=== PATIENT | female | born 1960 | race Caucasian/White ===

== ENCOUNTER → 2017-02-11 | Outpatient (CLI) | payer BC, OTHER ==
[~2017-02-11] MED LIST: ASPCH81X PO; ATOR-26 PO; CLC100 PO; EZET10TA63 PO; FERR1TAB13 PO; GLCPUNK PO; HYOS0.1271 PO; INSUINJ4 SQ; ISOS120T5 PO; LPR25 PO; MISC1CAP PO; PANT40TA PO; ZNTT/150 PO
[2017-02-11 12:08] LABS: BASO % 0.2 %; BASO ABS # 0.01 K/uL (0-0.2); COMPLETE YES; HEMATOCRIT 39.4 % (37-47); IG% 0.2 %; MEAN CELL VOLUME 93.1 fL (80-100); MEAN CORPUSCULAR HEMOGLOBIN 31.7 pg (25-34); MEAN PLATELET VOLUME 10.1 fL (7.4-10.4); MONO % 11.3 %; NEUT % 60.3 %; PLATELET COUNT 238 K/uL (130-400); RED BLOOD COUNT 4.23 M/uL (4.2-5.4); WHITE BLOOD COUNT 6.55 K/uL (4.8-10.8)
[2017-02-11 12:15] LABS: ALT/SGPT 36 U/L (12-78); AMYLASE 44 U/L (25-115); BLOOD UREA NITROGEN 16 mg/dl (7-18); BUN/CREATININE RATIO 17.3 (10-20); CALCIUM 8.5 mg/dl (8.5-10.1); CARBON DIOXIDE 25 mmol/L (21-32); CHLORIDE 104 mmol/L (98-107); CREATININE 0.94 mg/dl (0.60-1.20); GLUCOSE 124 mg/dl (70-99); POTASSIUM 4.1 mmol/L (3.5-5.1); SODIUM 135 mmol/L (136-145)
[2017-02-11 12:18] LABS: ALB/GLOB RATIO 1.2 (0.9-2); ALKALINE PHOSPHATASE 56 U/L (45-117); AST/SGOT 18 U/L (15-37)
[2017-02-11 12:51] LABS: ESTIMATED AVERAGE GLUCOSE 123 mg/dl; HA1C FLAG Normal (Normal)
== END | disposition home or self-care (01) ==
LOC: C.LABBFT 10:55
PROVIDERS: ATTEND Physician Assistant Medical
DX: E11.65 Type 2 diabetes mellitus with hyperglycemia (principal); R10.9 Unspecified abdominal pain

== ENCOUNTER → 2017-02-12 | Outpatient (CLI) | payer BC, OTHER ==
[~2017-02-12] MED LIST changes: +OPTIRAY 320 IV PRN
--- NOTE | 2017-02-12 08:17 | DIAGNOSTIC IMAGING REPORT ---
CT OF THE ABDOMEN AND PELVIS WITH CONTRAST CLINICAL HISTORY: Abdominal pain, diarrhea and low back pain. COMPARISON STUDY: CT of the abdomen and pelvis May 16, 2015. TECHNIQUE: Following IV administration of 93 mL of Optiray-320, axial images of the abdomen and pelvis were obtained from the lung bases to the proximal femurs. Images were reviewed in the axial, sagittal, and coronal planes. IV contrast was administered without complication. A dose lowering technique was utilized adhering to the principles of ALARA. Oral contrast was administered. CT DOSE: 717.85 mGy.cm FINDINGS: Lung bases are clear. There is a small hiatal hernia. The liver, spleen, adrenal glands and pancreas are unremarkable. There are a few subcentimeter renal lesions which are too small to characterize but are likely benign. There is no biliary ductal dilatation status post cholecystectomy. There is no peripancreatic infiltration. No abdominal or pelvic lymphadenopathy is present. Postsurgical findings involving the anterior abdominal wall are noted. Caliber and wall thickness of small and large bowel are normal. The appendix is normal. There is sigmoid diverticulosis without evidence for acute diverticulitis. No free air, pneumatosis or portal venous gas is present. There are no suspicious skeletal lesions. The uterus is nonvisualized and likely surgically absent. There is moderate atherosclerotic plaque of the abdominal aorta. IMPRESSION: 1. No acute process within the abdomen or pelvis. 2. Small hiatal hernia. 3. Sigmoid diverticulosis without evidence for acute diverticulitis. No bowel obstruction. Normal appendix. Electronically signed by: Robe Reina M.D. 02/12/2017 8:15 AM Dictated Date/Time: 02/12/2017 7:56 AM
== END | disposition home or self-care (01) ==
LOC: C.CTS 07:15
PROVIDERS: ATTEND Physician Assistant Medical
DX: R19.7 Diarrhea, unspecified (principal); R10.9 Unspecified abdominal pain; K44.9 Diaphragmatic hernia without obstruction or gangrene; K57.30 Diverticulosis of large intestine without perforation or abscess without bleeding

== ENCOUNTER → 2017-02-16 | Outpatient (CLI) | payer BC, OTHER ==
[~2017-02-16] MED LIST changes: -OPTIRAY 320 IV PRN
[2017-02-16 12:29] LABS: URINE APPEARANCE CLEAR (CLEAR); URINE BILIRUBIN NEG (NEG); URINE COLOR YELLOW; URINE EPITHELIAL CELL AUTO >30 /lpf (0-5); URINE NITRITE NEG (NEG); URINE PH 6.5 (4.5-7.5); URINE SPECIFIC GRAVITY 1.017 (1.000-1.030); UROBILINOGEN NEG (NEG)
[2017-02-16 12:35] LABS: MANUAL MICROSCOPIC REQUIRED? NO; REVIEW REQ? NO
== END | disposition home or self-care (01) ==
LOC: C.LABBFT 08:25
PROVIDERS: ATTEND Internal Medicine
DX: R10.9 Unspecified abdominal pain (principal)

== ENCOUNTER → 2017-03-29 | Outpatient (CLI) | payer BC, OTHER ==
[2017-03-29 17:49] LABS: URINE APPEARANCE CLEAR (CLEAR); URINE BILIRUBIN NEG (NEG); URINE COLOR YELLOW; URINE EPITHELIAL CELL AUTO >30 /lpf (0-5); URINE NITRITE NEG (NEG); URINE SPECIFIC GRAVITY 1.015 (1.000-1.030); UROBILINOGEN NEG (NEG)
[2017-03-29 17:57] LABS: MANUAL MICROSCOPIC REQUIRED? NO; REVIEW REQ? NO
== END | disposition home or self-care (01) ==
LOC: C.LABBFT 13:51
PROVIDERS: ATTEND Physician Assistant Medical
DX: R39.9 Unspecified symptoms and signs involving the genitourinary system (principal)

== ENCOUNTER → 2017-06-08 | Outpatient (CLI) | payer BC, OTHER ==
[2017-06-08 12:41] LABS: ALT/SGPT 18 U/L (12-78); AST/SGOT 8 U/L (15-37); BLOOD UREA NITROGEN 17 mg/dl (7-18); BUN/CREATININE RATIO 19.7 (10-20); CALCIUM 8.3 mg/dl (8.5-10.1); CARBON DIOXIDE 26 mmol/L (21-32); CHLORIDE 107 mmol/L (98-107); CREATININE 0.84 mg/dl (0.60-1.20); GLUCOSE 142 mg/dl (70-99); POTASSIUM 3.9 mmol/L (3.5-5.1); SODIUM 139 mmol/L (136-145)
[2017-06-08 12:48] LABS: ESTIMATED AVERAGE GLUCOSE 126 mg/dl; HA1C FLAG Normal (Normal)
[2017-06-08 12:52] LABS: ALB/GLOB RATIO 1.1 (0.9-2); ALKALINE PHOSPHATASE 54 U/L (45-117); CHOLESTEROL 315 mg/dl (0-200); HDL CHOLESTEROL 35 mg/dl; LDL CHOLESTEROL CALCULATED 221 mg/dl; TRIGLYCERIDES 296 mg/dl (0-150); VERY LOW DENSITY LIPOPROT CALC 59 mg/dl
== END | disposition home or self-care (01) ==
LOC: C.LABBFT 09:16
PROVIDERS: ATTEND Nurse Practitioner Family
DX: E11.9 Type 2 diabetes mellitus without complications (principal)

== ENCOUNTER → 2017-12-30 | Outpatient (CLI) | payer BC, OTHER ==
[~2017-12-30] MED LIST changes: +RANI150T85 PO; -ZNTT/150 PO
[2017-12-30 13:33] LABS: ALBUMIN 3.5 gm/dl (3.4-5.0); TOTAL PROTEIN 6.3 gm/dl (6.4-8.2)
== END | disposition home or self-care (01) ==
LOC: C.LABBFT 08:29
PROVIDERS: ATTEND Internal Medicine Interventional Cardiology
DX: E78.5 Hyperlipidemia, unspecified (principal)

== ENCOUNTER 2019-11-17 06:58 | Inpatient (IN) ==
--- NOTE | 2019-08-25 14:19 | PAT Medication Instructions ---
Medication Instructions Date of Service August 25, 2019 Home Medications Medication Instructions Recorded cyanocobalamin (vitamin B-12) 1,000 mcg PO DAILY #30 tab 03/20/19 1,000 mcg tablet isosorbide mononitrate 120 mg 240 mg PO DAILY #180 tab 06/08/19 tablet,extended release 24 hr metformin 1,000 mg tablet 1,000 mg PO BID #180 tab 07/10/19 pantoprazole 40 mg tablet,delayed 40 mg PO QAM #90 tab 08/25/19 release aspirin 81 mg tablet,delayed release 81 mg PO QAM atorvastatin 80 mg tablet 80 mg PO HS cholecalciferol (vitamin D3) 50 mcg (2,000 unit) tablet 2,000 units PO QAM docusate sodium 100 mg capsule 200 mg PO HS PRN metoprolol tartrate 25 mg tablet 25 mg PO BID nitroglycerin 400 mcg/spray translingual 1 sprays SL .COMPLEX semaglutide 0.5 mg SQ WEEKLY cyanocobalamin (vitamin B-12) 1,000 mcg tablet 1,000 mcg PO DAILY isosorbide mononitrate 120 mg tablet,extended release 24 hr 240 mg PO DAILY metformin 1,000 mg tablet 1,000 mg PO BID famotidine 20 mg PO QPM ferrous sulfate [iron] 325 mg PO QAM magnesium oxide 400 mg PO QAM pantoprazole 40 mg tablet,delayed release 40 mg PO QAM Continue as directed nitroglycerin 400 mcg/spray translingual 1 sprays SL .COMPLEX semaglutide 0.5 mg SQ WEEKLY DO NOT take the morning of surgery cholecalciferol (vitamin D3) 50 mcg (2,000 unit) tablet 2,000 units PO QAM cyanocobalamin (vitamin B-12) 1,000 mcg tablet 1,000 mcg PO DAILY metformin 1,000 mg tablet 1,000 mg PO BID ferrous sulfate [iron] 325 mg PO QAM magnesium oxide 400 mg PO QAM Take morning of surgery With a small sip of water, OTHERWISE NOTHING TO EAT OR DRINK AFTER MIDNIGHT: aspirin 81 mg tablet,delayed release 81 mg PO QAM metoprolol tartrate 25 mg tablet 25 mg PO BID isosorbide mononitrate 120 mg tablet,extended release 24 hr 240 mg PO DAILY pantoprazole 40 mg tablet,delayed release 40 mg PO QAM Take evening before surgery atorvastatin 80 mg tablet 80 mg PO HS docusate sodium 100 mg capsule 200 mg PO HS PRN (if needed) metoprolol tartrate 25 mg tablet 25 mg PO BID metformin 1,000 mg tablet 1,000 mg PO BID famotidine 20 mg PO QPM Other Notes If you have any questions please call us at [phone] or [phone] or [phone] or [phone]
--- NOTE | 2019-11-07 13:10 | PAT Medication Instructions ---
Medication Instructions Date of Service November 07, 2019 Home Medications Medication Instructions Recorded cyanocobalamin (vitamin B-12) 1,000 mcg PO DAILY #30 tab 03/20/19 1,000 mcg tablet isosorbide mononitrate 120 mg 240 mg PO DAILY #180 tab 06/08/19 tablet,extended release 24 hr metformin 1,000 mg tablet 1,000 mg PO BID #180 tab 07/10/19 metoprolol tartrate 25 mg tablet 25 mg PO BID #180 tab 08/25/19 pantoprazole 40 mg tablet,delayed 40 mg PO QAM #90 tab 08/25/19 release atorvastatin 80 mg tablet See Rx Instructions .ROUTE 10/10/19 .COMPLEX #90 tablet ranolazine 500 mg tablet,extended 500 mg PO BID #180 tab 10/16/19 release,12 hr aspirin 81 mg tablet,delayed release 81 mg PO QAM atorvastatin 80 mg tablet 80 mg PO HS cholecalciferol (vitamin D3) 50 mcg (2,000 unit) tablet 2,000 units PO QAM docusate sodium 100 mg capsule 200 mg PO HS PRN metoprolol tartrate 25 mg tablet 25 mg PO BID nitroglycerin 400 mcg/spray translingual 1 sprays SL .COMPLEX semaglutide 0.5 mg SQ WEEKLY cyanocobalamin (vitamin B-12) 1,000 mcg tablet 1,000 mcg PO DAILY isosorbide mononitrate 120 mg tablet,extended release 24 hr 240 mg PO DAILY metformin 1,000 mg tablet 1,000 mg PO BID famotidine 20 mg PO QPM ferrous sulfate [iron] 325 mg PO QAM magnesium oxide 400 mg PO QAM pantoprazole 40 mg tablet,delayed release 40 mg PO QAM ranolazine 500mg tablet, extended release 500 mg PO BID Continue as directed nitroglycerin 400 mcg/spray translingual 1 sprays SL .COMPLEX semaglutide 0.5 mg SQ WEEKLY DO NOT take the morning of surgery cholecalciferol (vitamin D3) 50 mcg (2,000 unit) tablet 2,000 units PO QAM cyanocobalamin (vitamin B-12) 1,000 mcg tablet 1,000 mcg PO DAILY metformin 1,000 mg tablet 1,000 mg PO BID ferrous sulfate [iron] 325 mg PO QAM magnesium oxide 400 mg PO QAM Take morning of surgery With a small sip of water, OTHERWISE NOTHING TO EAT OR DRINK AFTER MIDNIGHT: aspirin 81 mg tablet,delayed release 81 mg PO QAM metoprolol tartrate 25 mg tablet 25 mg PO BID isosorbide mononitrate 120 mg tablet,extended release 24 hr 240 mg PO DAILY pantoprazole 40 mg tablet,delayed release 40 mg PO QAM ranolazine 500mg tablet, extended release 500 mg PO BID Take evening before surgery atorvastatin 80 mg tablet 80 mg PO HS docusate sodium 100 mg capsule 200 mg PO HS PRN (if needed) metoprolol tartrate 25 mg tablet 25 mg PO BID metformin 1,000 mg tablet 1,000 mg PO BID famotidine 20 mg PO QPM ranolazine 500mg tablet, extended release 500 mg PO BID Other Notes If you have any questions please call us at [phone] or [phone] or [phone] or [phone]
--- NOTE | 2019-11-08 09:48 | Anesthesiology Consultation ---
Date of Service November 08, 2019 Assessment & Plan (1) Encounter for pre-operative examination: COVID Status: As of 11/06 nurse assessment, patient denies travel to endemic area, known exposure/sick contacts, symptoms, or testing for coronavirus. Cardiology 04/18/19 office visit = "Endorses CCS class II symptoms which do not appear to be terribly limiting at this time. Blood pressures are borderline for now we will continue on current antianginal therapy with metoprolol and Imdur." Pt was to f/u in 6 months but 10/2019 appt was cx due to covid19 pandemic. Patient reports no change in stable angina (mild chest tightness if she rushes up stairs, +PEREZ with stairs, no symptoms with ambulation on flat surface). BSG AM DOS NOTE TO DR CHEEMA RE: HYPOTENSION, AWAIT RESPONSE. Chart Review Chart Review: Acceptable Risk for Surgery (pending response from Dr. Cheema) and Patient NOT seen in Pre Admission Testing Teaching & Discussion Instructed NPO after midnight before surgery, except medications with 15 cc of water. Medication instructions provided according to the PAT guidelines. History Surgery Operation Date: 11/17/19 10:40 Proposed Procedures p Left Total Knee Arthroplasty - Art Elkins, Height/Weight Height: 5 ft 1 in Weight: 76.204 kg Allergies Allergy/AdvReac Type Severity Reaction Status Date / Time glimepiride Allergy Intermediate RASH Verified 11/07/19 14:25 pneumococcal vaccine Allergy Intermediate RASH Verified 11/07/19 14:25 morphine AdvReac Mild NAUSEA Verified 11/07/19 14:25 Medications Home Medications Medication Instructions Recorded Confirmed Last Taken aspirin 81 mg tablet,delayed 81 mg PO QAM tab 03/16/19 11/08/19 Unknown release cholecalciferol (vitamin D3) 50 2,000 units PO QAM tab 03/16/19 11/08/19 Unknown mcg (2,000 unit) tablet docusate sodium 100 mg capsule 200 mg PO HS PRN cap 03/16/19 11/08/19 Unknown nitroglycerin 400 mcg/spray 1 sprays SL .COMPLEX gm 03/16/19 11/08/19 Unknown translingual semaglutide 0.5 mg SQ WEEKLY ml 03/16/19 11/08/19 Unknown blood sugar diagnostic #10 ea 03/20/19 07/24/19 Unknown cyanocobalamin (vitamin B-12) 1,000 mcg PO DAILY #30 tab 03/20/19 11/08/19 Unknown 1,000 mcg tablet metformin 1,000 mg tablet 1,000 mg PO BID #180 tab 07/10/19 11/08/19 Unknown famotidine 20 mg PO QPM 08/23/19 11/08/19 Unknown ferrous sulfate [iron] 325 mg PO QAM 08/23/19 11/08/19 Unknown magnesium oxide 400 mg PO QAM 08/23/19 11/08/19 Unknown metoprolol tartrate 25 mg tablet 25 mg PO BID #180 tab 08/25/19 11/08/19 Unknown pantoprazole 40 mg tablet,delayed 40 mg PO QAM #90 tab 08/25/19 11/08/19 Unknown release atorvastatin 80 mg tablet See Rx Instructions .ROUTE 10/10/19 11/08/19 Unknown .COMPLEX #90 tablet ranolazine 500 mg tablet,extended 500 mg PO BID #180 tab 10/16/19 11/08/19 Unknown release,12 hr isosorbide mononitrate 240 mg PO QAM 11/07/19 11/08/19 Unknown Past Medical History Medical History CAD (coronary artery disease) s/p CABG x 2 2010. Follows with [facility] Cheema. Diabetes mellitus, type 2 NIDDM DJD (degenerative joint disease) of knee Gastroparesis GERD (gastroesophageal reflux disease) Hiatal hernia History of anemia WHEN TAKING CHEMO Hx of myocardial infarction ? date - at least 10 years ago Hx of ovarian cancer 2013 - CHEMO Hyperlipidemia Osteoarthritis Exercise / Class Metabolic Activity III < 4 Walking/Shop/Light housework (Denies CP or SOB with ambulation on one level) + "chest tightness" with 1 FOS, stable, has been this way for many years. Past Family History Family History Unknown Colon cancer Coronary heart disease Hypercholesterolemia Uncle Diabetes Cardiac disorder Brother Hearing loss Cardiac disorder Stroke syndrome Asthma Sister Gallbladder disease Mother Gallbladder disease Father Gallbladder disease Past Surgical History Surgical History History of abdominal hysterectomy History of carpal tunnel repair History of tubal ligation History of umbilical hernia repair Hx of bladder repair surgery Hx of CABG - 2010 Hx of cardiac cath 2011 [facility] AND 2016 [facility] Hx of cholecystectomy Hx of colonoscopy Hx of esophagogastroduodenoscopy Hx of foot surgery HEELS - BOTH; BIG TOE - BONE SPUR LEFT Hx of total hysterectomy Past Anesthesia History No Hx of Anesthesia Complications and No Family Hx of Anesthesia Complications History of PONV No Hx of PONV and No Hx of Motion Sickness Social History Smoking Status: Never smoker Do You Dip or Chew Tobacco: No Hx Alcohol Use: Yes Alcohol type: wine alcohol intake frequency: holidays/special occasions only Hx Substance Use: No Review of Systems Pt denies any recent chest pain, shortness of breath, palpitations, cough, fever or URI. Physical Exam Vital Signs BP: 84/53, rpt 81/45 -- pt denies any symptoms of hypotension, states this is normal for her since her CABG. Rpt MANUAL 92/60 P: 73bpm SPO2: 96% RA T: 97.7 R: 18 ENMT Mouth: + dentures and + edentulous Thyromental Distance: < 3.5 Finger Breadths (3) Mallampati Class: I Neck normal visual inspection; neck extension not limited Respiratory normal respiratory effort Auscultation: lungs clear to auscultation bilaterally Cardiovascular Rate/Rhythm: regular rate and regular rhythm Heart Sounds: no murmur Extremities: no edema Testing Laboratory Results 11/08/19 10:10 11/08/19 10:10 PT 11.1 Seconds (9.0-12.0) 11/08/19 10:10 INR 1.1 (0.9-1.1) 11/08/19 10:10 APTT 24.3 Seconds (21.0-31.0) 11/08/19 10:10 Hemoglobin A1c 6.2 % (4.5-5.6) H 11/08/19 10:10 Blood Type A Positive 11/08/19 10:10 Antibody Screen NEGATIVE 11/08/19 10:10 Electrocardiogram Date: 11/08/19 Findings: + NSR @ (70bpm) Low voltage QRS, NSTWA. Compared to EKG from 12/17/10, questionable change in QRS axis, NSTWA no longer present in inferior leads, NSTWA now evident in lateral leads. Chest X-Ray Date: 11/08/19 Findings: + NAD Cardiac Catheterization Date: 03/17/16 Significant CAD by angiography, however unchanged from prior angiography film reviewed from 2011. No new culprit lesion is identified for the patient's symptoms. No targets for additional catheter or surgical revascularization identified at this time.
[2019-11-08 10:25] LABS: Basophils # (auto) 0.01 K/uL (0-0.2); Basophils % (auto) 0.2 %; Eosinophils # (auto) 0.23 K/uL (0-0.5); Eosinophils % (auto) 4.2 %; Immature Granulocytes # (auto) 0.02 K/uL (0.00-0.02); Immature Granulocytes % (auto) 0.4 %; Lymphocytes # (auto) 1.46 K/uL (1.2-3.4); Lymphocytes % (auto) 26.5 %; Mean Corpuscular Hemoglobin 30.4 pg (25-34); Mean Corpuscular Hgb Conc 32.5 g/dL (32-36); Mean Corpuscular Volume 93.5 fL (80-100); Monocytes # (auto) 0.39 K/uL (0.11-0.59); Monocytes % (auto) 7.1 %; Neutrophils # (auto) 3.39 K/uL (1.4-6.5); Neutrophils % (auto) 61.6 %; Platelet Count 197 K/uL (130-400); RDW Coefficient of Variation 13.4 % (11.5-14.5); RDW Standard Deviation 45.5 fL (36.4-46.3); Red Blood Count 4.28 M/uL (4.2-5.4)
[2019-11-08 10:31] LABS: Estimated Average Glucose 131 mg/dl; Hemoglobin A1C 6.2 % (4.5-5.6)
[2019-11-08 10:40] LABS: INR 1.1 (0.9-1.1); Partial Thromboplastin Ratio 0.9; Partial Thromboplastin Time 24.3 Seconds (21.0-31.0); Prothrombin Time 11.1 Seconds (9.0-12.0)
--- NOTE | 2019-11-08 10:54 | XRay Report ---
XR chest Pre-admission PA/Lat HISTORY: Preop. COMPARISON: Chest 05/08/2015. FINDINGS: No pneumothorax. No pleural effusions. The lungs are clear. The heart is normal in size. Th ere are poststernotomy changes. IMPRESSION: No acute process. ACT 112: Negative or not required by law. Electronically signed by: Saul Chatterjee M.D. 11/08/2019 10:53 AM
[2019-11-08 12:59] LABS: BUN Creatinine Ratio 15.2 (10-20); Calcium 8.6 mg/dl (8.5-10.1); Creatinine Clr Calc Pharmacy 52.7 ml/min; Est GFR (African American) 66.1; Potassium 4.3 mmol/L (3.5-5.1)
--- NOTE | 2019-11-08 14:33 | Electrocardiogram Report ---
Test Reason : Blood Pressure : / mmHG Vent. Rate : 070 BPM Atrial Rate : 070 BPM P-R Int : 172 ms QRS Dur : 072 ms QT Int : 402 ms P-R-T Axes : 064 078 080 degrees QTc Int : 434 ms Normal sinus rhythm Low voltage QRS Nonspecific T wave abnormality Abnormal ECG When compared with ECG of 17-DEC-2010 16:59, Questionable change in QRS axis Nonspecific T wave abnormality no longer evident in Inferior leads Nonspecific T wave abnormality now evident in Lateral leads Confirmed by Jose Monet ([id number]) on 11/08/2019 2:33:23 PM Referred By: Art Elkins Confirmed By:Jose Monet
--- NOTE | 2019-11-16 07:48 | History & Physical Report ---
Date of Service November 16, 2019 Assessment & Plan (1) Osteoarthritis of left knee: We will proceed with a left total knee arthroplasty. Postoperatively she will be started on aspirin for DVT prophylaxis and kept overnight in the hospital for postoperative medical management. She plans to go to [facility] physical therapy as an outpatient upon discharge. Halima is an increased risk for knee replacement surgery. She has major comorbidities which include diabetes and coronary artery disease. Present on Admission?: Yes History of Present Illness Chief Complaint: Primary osteoarthritis of the left knee Primary Care Provider: Osman Frank MD Halima is a pleasant 59-year-old female who is been dealing with chronic increasing left knee pain. X-rays and physical examination have been diagnostic for advanced osteoarthritis of the left knee. After failing conservative treatment, she has elected to proceed with a left total knee arthroplasty. Allergies Allergy/AdvReac Type Severity Reaction Status Date / Time glimepiride Allergy Intermediate RASH Verified 11/07/19 14:25 pneumococcal vaccine Allergy Intermediate RASH Verified 11/07/19 14:25 morphine AdvReac Mild NAUSEA Verified 11/07/19 14:25 Home Medications Home Medications Medication Instructions Recorded Confirmed Type aspirin 81 mg tablet,delayed 81 mg PO QAM tab 03/16/19 11/08/19 History release cholecalciferol (vitamin D3) 50 2,000 units PO QAM tab 03/16/19 11/08/19 History mcg (2,000 unit) tablet docusate sodium 100 mg capsule 200 mg PO HS PRN cap 03/16/19 11/08/19 History nitroglycerin 400 mcg/spray 1 sprays SL .COMPLEX gm 03/16/19 11/08/19 History translingual semaglutide 0.5 mg SQ WEEKLY ml 03/16/19 11/08/19 History blood sugar diagnostic #10 ea 03/20/19 07/24/19 History cyanocobalamin (vitamin B-12) 1,000 mcg PO DAILY #30 tab 03/20/19 11/08/19 Rx 1,000 mcg tablet metformin 1,000 mg tablet 1,000 mg PO BID #180 tab 07/10/19 11/08/19 Rx famotidine 20 mg PO QPM 08/23/19 11/08/19 History ferrous sulfate [iron] 325 mg PO QAM 08/23/19 11/08/19 History magnesium oxide 400 mg PO QAM 08/23/19 11/08/19 History metoprolol tartrate 25 mg tablet 25 mg PO BID #180 tab 08/25/19 11/08/19 Rx pantoprazole 40 mg tablet,delayed 40 mg PO QAM #90 tab 08/25/19 11/08/19 Rx release atorvastatin 80 mg tablet See Rx Instructions .ROUTE 10/10/19 11/08/19 Rx .COMPLEX #90 tablet ranolazine 500 mg tablet,extended 500 mg PO BID #180 tab 10/16/19 11/08/19 Rx release,12 hr isosorbide mononitrate 240 mg PO QAM 11/07/19 11/08/19 History Past Med/Surg History Medical History CAD (coronary artery disease) s/p CABG x 2 2010. Follows with [facility]as. Diabetes mellitus, type 2 NIDDM DJD (degenerative joint disease) of knee Gastroparesis GERD (gastroesophageal reflux disease) Hiatal hernia History of anemia WHEN TAKING CHEMO Hx of myocardial infarction ? date - at least 10 years ago Hx of ovarian cancer 2013 - CHEMO Hyperlipidemia Osteoarthritis Surgical History History of abdominal hysterectomy History of carpal tunnel repair History of tubal ligation History of umbilical hernia repair Hx of bladder repair surgery Hx of CABG - 2010 Hx of cardiac cath 2011 [facility] AND 2015 [facility] Hx of cholecystectomy Hx of colonoscopy Hx of esophagogastroduodenoscopy Hx of foot surgery HEELS - BOTH; BIG TOE - BONE SPUR LEFT Hx of total hysterectomy Family History Unknown Colon cancer Coronary heart disease Hypercholesterolemia Uncle Diabetes Cardiac disorder Brother Hearing loss Cardiac disorder Stroke syndrome Asthma Sister Gallbladder disease Mother Gallbladder disease Father Gallbladder disease Social History Preferred Language: Korean Communication Ability: Effective Beliefs That Will Affect Care: None marital status: Current Living Situation: Spouse Feels Safe at Home: Yes Smoking Status: Never smoker Second Hand Exposure: No ; Hx Alcohol Use: Yes Alcohol type: wine Hx Substance Use: No Review of Systems Review of Systems: All systems reviewed & are unremarkable except as noted in HPI & below Physical Exam Constitutional: WD/WN, vitals as above Eyes: PERRL, conjunctivae normal, anicteric sclerae ENMT: external ear and nose normal, oropharynx normal Neck: trachea midline, no thyromegaly Respiratory: normal respiratory effort Cardiovascular: RRR, no murmur, no edema Gastrointestinal (Abdomen): normal bowel sounds, soft, nontender, no hepatosplenomegaly Musculoskeletal: On physical examination of the left knee there is a trace effusion. There is near full range of motion and no evidence of instability. There is significant tenderness palpation along the medial and lateral joint lines and over the distal femoral condyles. Psychiatric: A+Ox3, euthymic affect Results & Data Results & Data ([facility]) Diagnostic Findings Radiographs of the left knee demonstrate advanced osteoarthritis with joint space narrowing osteophyte formation and [id number] articulation. PG Care Time/CCT Total # of Minutes Spent Total Time Spent with Patient: Total time spent is greater than 50% in coordination of care (as documented) at patient's floor/unit and/or counseling patient: Coding Level of Care Code 81060 Initial Inpt Care Lvl 3 Diagnoses Osteoarthritis of left knee M17.12
[~2019-11-17 06:58] MED LIST changes: +ACETAMINOPHEN 500 MG TAB PO SCH; -ASPCH81X PO; -ATOR-26 PO; +CEFAZOLIN 1000MG 1,000 MG/7.5 ML SYR IV SCH; -CLC100 PO; -EZET10TA63 PO; +FAMOTIDINE 20 MG TAB PO SCH; -FERR1TAB13 PO; +GABAPENTIN 600 MG DOSE PO SCH; -GLCPUNK PO; -HYOS0.1271 PO; -INSUINJ4 SQ; -ISOS120T5 PO; -LPR25 PO; +LR 500ML BOLUS, THEN 15ML/HR IV SCH; +LR 60ML/HR IV SCH; -MISC1CAP PO; -PANT40TA PO; -RANI150T85 PO; +ROPIVACAINE 0.5% HCL/PF 150 MG, BUPIVACAINE 0.5% MPF 30 ML, EPINEPHrine 30MG/30ML (OR U... INFIL SCH; +TRANEXAMIC ACID 1,000 MG **IV Intra-op IV SCH; +dexAMETHasone 4 MG TAB PO SCH
[2019-11-17] MEDS ORDERED: BUPIVACAINE 0.25% 30 ML VIAL ONE (07:21)
[2019-11-17] MEDS ORDERED: BUPIVACAINE 0.5 % 5 MG/1 ML PF 10ML VIAL ONE (07:21)
[2019-11-17] MEDS ORDERED: MIDAZOLAM HCL 1 MG/ML 2ML VIAL ONE (07:40)
[2019-11-17] MEDS ORDERED: LIDOCAINE HCL 2% 2 ML VIAL/AMP(20MG/ML) INFIL ONE (07:40)
[2019-11-17] MEDS ORDERED: PROPOFOL IV EMULSION 10 MG/ML 20 ML VIAL IV ONE (07:40)
[2019-11-17] MEDS ORDERED: ATROPINE SULFATE 0.1 MG/ML 10ML SYR IV PRN (08:18)
[2019-11-17] MEDS ORDERED: ePHEDrine sulfate 50 MG/ML AMP IV PRN (08:18)
--- NOTE | 2019-11-17 08:27 | History & Physical Bridge Note ---
Date of Service November 17, 2019 History & Physical Bridge Note I have examined the patient, reviewed the History & Physical and in the interval since the performance of the History & Physical I have noted the following changes of clinical significance: no changes noted
[2019-11-17] MEDS: TRANEXAMIC ACID / 0.7% NACL 1,000 MG/100 ML BAG IV SCH ×2 (08:36→10:45)
[2019-11-17] MEDS ORDERED: DexMEDEtomidine HCL IV 100 MCG/ML VIAL ONE (08:52)
[2019-11-17] MEDS ORDERED: ORTHO JOINT ANESTHETIC ONE (09:12)
[2019-11-17] MEDS ORDERED: ePHEDrine sulfate 50 MG/ML AMP ONE (10:52)
[2019-11-17] MEDS ORDERED: PHENYLEPHRINE HCL 10 MG/ML VIAL ONE (10:52)
--- NOTE | 2019-11-17 11:04 | Operative Report ---
PG Post Operative Report Pre & Post Diagnosis Operation Date: 11/17/19 08:50 Pre-Op Diagnosis: Left Knee Osteoarthritis Post-Op Diagnosis: Left Knee Osteoarthritis I identified the patient and participated in the time-out.: Yes Procedure Operation Date: 11/17/19 08:50 Actual Procedures p Left Total Knee Arthroplasty(Left) - Art Elkins DO Surgeon Art Elkins DO [employer] Coordinator Art Neumann PAC Estimated Blood Loss 30 Findings Consistent with Post-Op Diagnosis Specimens Left femoral and tibial bone Complications none Disposition Disposition: Recovery Room Indications Halima is a pleasant 59-year-old female who presented my office with complaints of chronic increasing left knee pain. X-rays and clinical examination were diagnostic for primary osteoarthritis of the left knee. After failing conservative treatment, she elected to proceed with a left total knee arthroplasty. Description of Procedure Implants used: I used a Nicholas Persona total knee arthroplasty system with a size 6 narrow femur, C tibia, 26 patella, and a size 10 medial congruent polyethylene bearing. All components were cemented in place with Palacos G cement. Halima arrived [facility] for the above procedure. She was seen in the preoperative holding area and the operative extremity was identified and signed. She was given a preoperative antibiotic, TXA, a spinal anesthetic and an adductor nerve block. She was taken back to the operating room and laid on the table in supine position. She was given basic sedation. The operative knee was then prepped and draped in sterile fashion. A timeout was done, and the patient and the operative extremity was properly identified. A midline incision was made directly over the patella. Dissection was taken down to the extensor mechanism. A subvastus arthrotomy was used. The medial retinaculum was released and the fat pad was mostly excised. The knee was flexed and the ACL, PCL, and meniscus were removed. A drill was sent down the center of the femoral canal followed by an intramedullary elaina. Off that elaina a distal femoral cutting block was placed. 9 mm was resected off the distal femur at 5 of valgus. A posterior referencing AP sizing guide was then placed on the distal femur. The femur measured to be a size 6. 2 drill holes were placed in 3 of external rotation. A 4-in-1 cutting block was then impacted into place. Anterior, posterior, and chamfer cuts were then made. The proximal tibia was then exposed. An external tibial alignment guide was placed. A tibial cut guide was then anchored in place to resect 2 mm off the low medial side. The proximal tibia was then resected. The tibia measured to be a size C. The tibial plate was then placed in the appropriate rotation and the tibia was drilled and punched. The posterior aspect of the knee was then opened up and any additional meniscus fragments and osteophytes were removed. Trial components were then placed. I used a size 10 medial congruent polyethylene insert. The knee was brought through a full range of motion and felt to be stable. The patella was then everted and 8 mm was resected off the posterior aspect of the patella. The patella measured to be a size 26. 3 peg holes were then drilled. A trial patella was placed. The knee was once again brought through a full range of motion and felt to be stable. Trial components were then removed. The surrounding soft tissues were injected with 100 cc of an orthopedic pain control cocktail. All components were then cemented into place with Palacos G cement. The final polyethylene insert was then snapped into place and the anterior bar was locked. Once cement was dry the tourniquet was deflated. Hemostasis was obtained. A dilute betadyne lavage was then done for 3 minutes. The joint was then irrigated with normal saline solution. The subvastus arthrotomy was then closed with #1 Vicryl suture. The skin was closed with 2-0 Vicryl, 3-0V lock suture, and young. A soft compressive dressing was placed. She was then transferred to a hospital bed and taken to the postanesthesia care unit in stable condition. She tolerated the procedure well. Art Neumann PA-C, was present for the entire procedure. He was critical for patient positioning, prepping, draping, retraction exposure, wound closure and application of sterile dressing. I attest to the content of the Intraoperative Record and any orders documented therein. Any exceptions are noted below.
--- NOTE | 2019-11-17 11:47 | XRay Report ---
XR knee LT 1 or 2V routine CLINICAL HISTORY: Surgical Post Op COMPARISON: None. DISCUSSION: Anatomic alignment posttotal left knee arthroplasty. Could contact between prosthetic and underlying bone. Expected postoperative soft tissue change IMPRESSION: Anatomic alignment posttotal left knee arthroplasty. ACT 112: Negative or not required by law. The above report was generated using voice recognition software. It may contain grammatical, syntax or spelling errors. Electronically signed by: Kristian Hannon M.D. 11/17/2019 11:45 AM
[2019-11-17] MEDS ORDERED: NALOXONE HCL 0.4 MG/1 ML VIAL/CARP IV PRN (13:04)
[2019-11-17] MEDS ORDERED: HYDROmorphone INJ 0.5 MG/0.5 ML SYR IV PRN (13:04)
[2019-11-17] MEDS ORDERED: DOCUSATE SODIUM 100 MG CAP PO PRN (13:04)
[2019-11-17] MEDS ORDERED: ONDANSETRON INJ 2 MG/ML 2 ML VIAL IV PRN (13:04)
[2019-11-17] MEDS ORDERED: bisacodyL 10 MG SUPP PR PRN (13:04)
[2019-11-17] MEDS ORDERED: MAGNESIUM HYDROXIDE SUSP 30 ML UDC PO PRN (13:04)
[2019-11-17] MEDS ORDERED: NON-FORMULARY MEDICATION (Semaglutide [Ozempic] 0.5 MG) SQ SCH (13:04)
[2019-11-17] MEDS ORDERED: OXYCODONE HCL IR 5 MG TAB (IMMEDIATE RELEASE) PO PRN (13:04)
[2019-11-17] MEDS ORDERED: METOCLOPRAMIDE HCL INJ 5 MG/ML 2 ML VIAL IV PRN (13:04)
[2019-11-17] MEDS ORDERED: NITROGLYCERIN 60 SPRAYS/4.9 GM SPRAY SL PRN (13:04)
--- NOTE | 2019-11-17 13:05 | Anesthesiology Progress Note ---
Date of Service November 17, 2019 Anesthesia Post Procedure Vital Signs Vital Signs: Temp Pulse Pulse Resp BP BP Pulse Ox 11/17/19 12:15 55 L 17 89/54 L 100 11/17/19 12:05 36.3 C L 58 L 18 89/61 L 99 11/17/19 11:50 59 L 19 86/52 L 99 11/17/19 11:40 61 18 79/48 L 99 11/17/19 11:30 66 20 84/51 L 93 11/17/19 11:20 61 20 87/54 L 99 11/17/19 11:10 36.3 C L 63 16 84/52 L 99 11/17/19 07:29 36.5 C 76 20 101/72 96 Transfer of Care Handoff Completed per policy Notes Mental Status: alert / awake / arousable and participated in evaluation Nausea / Vomiting: adequately controlled Pain: adequately controlled Airway Patency, RR, SpO2: stable & adequate BP & HR: stable & adequate Hydration State: stable & adequate Neuraxial Anesthesia: was administered and sensory block is resolving Anesthetic Complications: no major complications apparent and Pt Satisfied with anesthetic care
[2019-11-17] MEDS ORDERED: PHARMACY GLYCEMIC MGMT CONSULT PRN (13:21)
[2019-11-17] MEDS ORDERED: DEXTROSE 50% 50 ML SYRINGE IV PRN (13:45)
[2019-11-17] MEDS ORDERED: GLUCOSE 40% GEL 15 GM TUBE PO PRN (13:45)
[2019-11-17] MEDS ORDERED: GLUCOSE 10 TABS/TUBE PO PRN (13:45)
[2019-11-17] MEDS ORDERED: CARBOHYDRATES FOR HYPOGLYCEMIA PO PRN (13:45)
[2019-11-17] MEDS ORDERED: GLUCAGON FOR INJ 1 MG VIAL IM PRN (13:45)
[2019-11-17] MEDS ORDERED: NovoLIN-N (NPH) PER UNIT CHARGE SQ ONE (14:00)
--- NOTE | 2019-11-17 14:11 | Pharmacy Report ---
Glycemic Control Consultation - Date of Service November 17, 2019 - Scope Scope: Glycemic Pharmacist consulted for glycemic control and to write orders per [facility] inpatient glycemic control protocol. - Objective Weight: 74.4 kg Accuchecks BSG (last 24hrs): 11/17/19 11/17/19 07:23 11:19 POC Glucose 119 H 175 H HbA1c: Hemoglobin A1c 6.2 % (4.5-5.6) H 11/08/19 10:10 - Recent Pertinent Medications Outpatient Anti-diabetic Regimen: * Ozempic 0.5 mg SQ weekly (last dose 11/15/19) * metformin 1000 mg BID * A1c = 6.2 % 11/08/2019 Risk Factors for Insulin Resistance: * Steroids: dexamethasone 8 mg PO preop * Recent Surgery: POD 0 * Diet: T2DM - Assessment & Plan Assessment & Plan: ASSESSMENT: * Ms Dumont is a 59 y/o F with a PMH of T2DM who presents for L TKA. Patient's diabetic control is excellent on Ozempic and metformin. Ozempic last taken 2 days ago so is still onboard. * She received dexamethasone 8 mg preop - give NPH 15 units (0.2 units/kg) to cover. * Utilize Novolog weight-based stress of 3 for steroid induced hyperglycemia. Ov ernight checks added. * ADA & AACE recommend a goal blood sugar range 140-180 mg/dl for the majority of critically ill & non-critically ill patients. However, more stringent targets may be selected in individual cases. Will utilize more stringent goal of 110-140mg/dl based on patient age & comorbidities. Additionally, tighter glycemic control is warranted to facilitate wound/infection healing. * Pt is maintained on oral antidiabetic agents as an outpatient * Oral agents are not recommended for inpatient use d/t drug interactions, changing PO intake, and difficulty titrating for acute hyper/hypoglycemia. ADA recommends re-initiating outpatient oral agents 1-2 days prior to discharge if/when appropriate if they were held on admission. * Will hold oral agents for admission and utilize SQ basal bolus insulin regimen which is the recommended regimen for inpatient glycemic control. PLAN FOR INPATIENT GLYCEMIC CONTROL: * Holding outpatient oral diabetes medications * Basal insulin * NPH 20 units SQ x 1 * Bolus insulin * NovoLog per scale ACHS or Q6hrs while NPO * Goal Range: Low 110 mg/dL - High 140 mg/dL * Correction Factor: 20 mg/dL/unit * Nutritional / Prandial insulin per carb ratio of 1 unit per 7 grams CHO consumed Outpatient Recommendations * Patient's HbA1C well controlled - recommend continuing current outpatient regimen . Thank you.
[2019-11-17] MEDS: SODIUM CHLORIDE 0.9% 1000ML 1,000 ML IV SCH (14:30)
[2019-11-17] MEDS: ACETAMINOPHEN 500 MG TAB PO SCH ×2 (14:32→21:17)
[2019-11-17] MEDS: KETOROLAC 30 MG/ML VIAL IV SCH ×2 (14:32→20:07)
[2019-11-17] MEDS: CEFAZOLIN 2000MG 2,000 MG/15 ML SYR IV SCH (17:31)
[2019-11-17] MEDS: INSULIN ASPART 100 UNITS/ML 3 ML PEN SC SCH ×2 (18:02→21:18)
[2019-11-17] MEDS: DOCUSATE SODIUM 100 MG CAP PO SCH (20:11)
[2019-11-17] MEDS ORDERED: ATORVASTATIN 40 MG TAB PO SCH (21:00)
[2019-11-17] MEDS ORDERED: FAMOTIDINE 20 MG TAB PO SCH (21:00)
[2019-11-17] MEDS ORDERED: SENNA 8.6 MG TAB PO SCH (21:00)
[2019-11-17] MEDS: ASPIRIN 81 MG ECTAB PO SCH (21:17)
[2019-11-17] MEDS: RANOLAZINE 500 MG ER TAB PO SCH (21:17)
[2019-11-17] MEDS: METOPROLOL TARTRATE 25 MG TAB PO SCH (21:17)
[2019-11-18] MEDS: INSULIN ASPART 100 UNITS/ML 3 ML PEN SC SCH ×3 (00:03→08:52)
[2019-11-18] MEDS: SODIUM CHLORIDE 0.9% 1000ML 1,000 ML IV SCH (02:09)
[2019-11-18] MEDS: CEFAZOLIN 2000MG 2,000 MG/15 ML SYR IV SCH (02:29)
[2019-11-18] MEDS: KETOROLAC 30 MG/ML VIAL IV SCH ×2 (02:30→08:16)
[2019-11-18] MEDS: ACETAMINOPHEN 500 MG TAB PO SCH (05:42)
[2019-11-18 06:09] LABS: Hematocrit (blood only) 32.6 % (37-47); Hemoglobin 11.2 g/dL (12.0-16.0); Mean Corpuscular Hemoglobin 31.8 pg (25-34); Mean Corpuscular Hgb Conc 34.4 g/dL (32-36); Mean Corpuscular Volume 92.6 fL (80-100); Mean Platelet Volume 10.1 fL (7.4-10.4); Platelet Count 179 K/uL (130-400); RDW Coefficient of Variation 13.4 % (11.5-14.5); RDW Standard Deviation 45.2 fL (36.4-46.3); Red Blood Count 3.52 M/uL (4.2-5.4); White Blood Count 11.26 K/uL (4.8-10.8)
[2019-11-18 06:42] LABS: Calcium 7.7 mg/dl (8.5-10.1); Creatinine Clr Calc Pharmacy 55.8 ml/min; Est GFR (African American) 71.8; Est GFR (Non-African American) 61.9; Potassium 3.9 mmol/L (3.5-5.1)
--- NOTE | 2019-11-18 06:45 | Orthopedic Progress Note ---
Date of Service November 18, 2019 Assessment & Plan (1) History of left knee replacement: Overall she is doing very well. She is not having much pain in the left knee. She will be seen by physical therapy today for ambulation and range of motion exercises. She is on aspirin for DVT prophylaxis. She can be discharged home later today. She will follow-up with orthopedics in 2 weeks. Present on Admission?: Yes Subjective Halima was seen and examined at bedside this morning. Overall she is doing very well. She is not having much pain in the left knee. She has been up and ambulating to the bathroom. She has no complaints. Physical Exam Musculoskeletal: On physical examination of the left knee, the dressing is clean and dry. She has active dorsiflexion and plantarflexion of her left ankle. Sensation is intact throughout. Results & Data ([facility]) Vital Signs (Past 12 Hours) Vital Signs Temp Pulse Resp BP Pulse Ox 11/18/19 02:37 36.8 C 73 20 130/81 97 11/17/19 23:36 36.6 C 70 16 104/67 96 11/17/19 19:17 36.7 C 80 17 110/73 95 Laboratory Results H & H 11/08/19 11/18/19 Range/Units 10:10 05:38 Hgb 13.0 11.2 L (12.0-16.0) g/dL Hct 40.0 32.6 L (37-47) % Coagulation 11/08/19 Range/Units 10:10 INR 1.1 (0.9-1.1) Diagnostic Findings Postoperative x-rays of the left knee show the prosthesis to be in anatomic alignment without any evidence of fracture, dislocation, or loosening. PG Care Time/CCT Total # of Minutes Spent Total Time Spent with Patient: Total time spent is greater than 50% in coordination of care (as documented) at patient's floor/unit and/or counseling patient: Coding Level of Care Code None Diagnoses History of left knee replacement Z96.652
--- NOTE | 2019-11-18 06:46 | Discharge Summary ---
Date of Service November 18, 2019 Admission HPI Per Admitting Provider Halima is a pleasant 59-year-old female who is been dealing with chronic increasing left knee pain. X-rays and physical examination have been diagnostic for advanced osteoarthritis of the left knee. After failing conservative treatment, she has elected to proceed with a left total knee arthroplasty. Principal Diagnosis Left total knee arthroplasty Discharge Data Allergies Allergy/AdvReac Type Severity Reaction Status Date / Time glimepiride Allergy Intermediate RASH Verified 11/17/19 07:23 pneumococcal vaccine Allergy Intermediate RASH Verified 11/17/19 07:23 morphine AdvReac Mild NAUSEA Verified 11/17/19 07:23 Consultations 11/17/19 13:04 Consult Case Management - Discharge Planning Routine Procedures Performed Operation Date: 11/17/19 08:50 Actual Procedures p Left Total Knee Arthroplasty(Left) - Art Elkins DO Ordered Studies 11/17/19 05:00 US - OR guided needle placemen Routine Hospital Course (1) History of left knee replacement: On November 17, 2019 Halima arrived at [facility] and underwent a left total knee arthroplasty without complication. She had a spinal anesthetic. Postoperatively she was started on aspirin for DVT prophylaxis and transferred to the general orthopedic floors. Her hospital course was uneventful. On postop day #1 her H&H was stable and her pain was well controlled. She was able to participate well with physical therapy doing ambulation and range of motion exercises. She was then discharged home. She will follow-up with orthopedics in 2 weeks. Total Time Total Time Spent Total Time Spent (In Minutes): 20 Discharge Plan Discharge Items Patient Disposition: Home - Home Health Services Reason For Visit: Left Knee Degenerative Joint Disease Discharge Diagnosis: Left total knee arthroplasty Activity: As commented below Non-emergency contact: Surgeon Call non-emergency contact if: your wound has increased redness and your wound has increased drainage Follow-up/Referrals: Mikel Frank MD [Primary Care Provider] - Diet: Carb Consistent or DM2 Addtl Attending Provider Instructions: Activity and Therapy Recommendations: * If you are using [facility] then therapy will be provided at your home until they feel you have accomplished all of your goals. * If you are using [facility] then Physical Therapy will be provided until they feel you are ready to start Outpatient Physical Therapy. * If you are not using home therapy then Outpatient Physical Therapy should start about 3-5 days from your day of surgery. Therapy will last about 6-10 weeks * It is important not to put a pillow under your knee when you are relaxing or sleeping. It is just as important to make sure you are getting your knee perfectly straight as it is to regain your knee bend. * You were shown a series of exercises in the hospital. Do these exercises three times each day including the exercises you were shown in physical therapy. * Get up and walk several times each day. For the first four weeks, try not to stand or walk for more than one hour at a time. If you do stand or walk for more than one hour, you will not hurt anything, but your leg will likely swell. * As you feel comfortable, you may change from the walker or crutches to a cane and then to independent walking. Medications: * Narcotic You will likely be sent home from the hospital with a prescription for the narcotic pain medication that worked best throughout your stay. * Aspirin Most patients will be required to take Aspirin 81mg twice a day for 6 weeks after surgery. This is obtained [id number] and a prescription is not necessary. * Other medications may be prescribed for specific circumstances. If you have any questions, please call the office at . * Resume previous home medications unless otherwise instructed TEDs/Elastic Stockings: The white elastic stockings help limit swelling and prevent blood clots from forming in your legs.~ The more you wear them, the more they work. Wear them for six weeks. Dressing Care: Leave the silver dressing in place for 7 days from the day of surgery. After 7 days you may remove the dressing. If the incision is not draining then you may leave the young open to air. If there is a little bit of drainage or if the young are getting stuck on your clothing then cover the incision with a dry dressing. The young will be removed at your 2 week follow-up appointment. Showering: You may shower with the silver dressing in place. Do not scrub or soak the dressing. Pat it dry. After the silver dressing is removed you may shower with the young exposed. Let the soapy shower water run over the young and pat them dry. Do not scrub or soak the incision. Things To Watch For: * Drainage from the incision site that occurs more than one week after your surgery. * Increased redness at the incision site. * Fever above 102 degrees Fahrenheit. * Unusual chest pain or shortness of breath. * Call [facility] at with any of the above problems Follow-Up Visit: Follow-up with Dr. Elkins's PA (Art Neumann) 2-3 weeks after your day of surgery. He will remove your young and answer any questions. If you have any additional questions or concerns, Dr Elkins is usually in the office at the same time and will be available An appointment was probably scheduled when you signed-up for surgery in the office. If you have any questions call Office Instructions: More detailed instructions as well as Frequently Asked Questions were provided in a folder by our office when you signed-up for surgery. Please review these instructions when you get home. If you have any further questions or concerns, please feel free to call the office at [phone] Pending Studies at Discharge: No Stand-Alone Forms: [facility], Smoking Cessation Medications and DC Order Prescriptions: New oxycodone 5 mg Tablet 5 mg PO Q4H PRN (Reason: pain) Qty: 30 RF: 0 Continued metformin 1,000 mg tablet 1,000 mg PO BID Qty: 180 RF: 3 metoprolol tartrate 25 mg tablet 25 mg PO BID Qty: 180 RF: 3 atorvastatin 80 mg tablet See Rx Instructions .ROUTE .COMPLEX Qty: 90 RF: 3 ranolazine [Ranexa] 500 mg tablet extended release 12 hr 500 mg PO BID Qty: 180 RF: 3 docusate sodium 100 mg capsule 200 mg PO HS PRN (Reason: Constipation) RF: 0 nitroglycerin 400 mcg/spray spray,non-aerosol 1 sprays SL .COMPLEX RF: 0 Ozempic 0.25 mg or 0.5 mg(2 mg/1.5 mL) pen injector 0.5 mg SQ WEEKLY RF: 0 cholecalciferol (vitamin D3) 2,000 unit tablet 2,000 units PO QAM RF: 0 (DME) OneTouch Ultra Blue Test Strip strip See Dose Instructions .ROUTE .MEDSUPPLY Qty: 10 RF: 0 cyanocobalamin (vitamin B-12) [Vitamin B-12] 1,000 mcg tablet 1,000 mcg PO DAILY Qty: 30 RF: 5 ferrous sulfate [iron] 325 mg (65 mg iron) Tablet 325 mg PO QAM RF: 0 magnesium oxide 400 mg magnesium Tablet 400 mg PO QAM RF: 0 famotidine 20 mg Tablet 20 mg PO QPM RF: 0 isosorbide mononitrate 120 mg tablet extended release 24 hr 240 mg PO QAM RF: 0 pantoprazole [Protonix] 40 mg tablet,delayed release (DR/EC) 40 mg PO QAM RF: 0 Changed aspirin 81 mg tablet,delayed release (DR/EC) 81 mg PO BID 42 Days Qty: 0 RF: 0 Discharge Orders: Discharge Order (Routine); Ordered 11/18/19 Ordered By: Art Elkins Admission Data Admit Date/Time: 11/17/19 11:14 Attending Provider: Art Elkins Admit Provider: Art Elkins Primary Care Provider: Mikel Frank Coding Level of Care Code D/C Day Management <30 mins Diagnoses History of left knee replacement Z96.652
[2019-11-18] MEDS: METOPROLOL TARTRATE 25 MG TAB PO SCH (08:20)
[2019-11-18] MEDS: DOCUSATE SODIUM 100 MG CAP PO SCH (08:20)
[2019-11-18] MEDS: RANOLAZINE 500 MG ER TAB PO SCH (08:20)
[2019-11-18] MEDS: ASPIRIN 81 MG ECTAB PO SCH (08:21)
[2019-11-18] MEDS ORDERED: FERROUS SULFATE 325 MG TAB PO SCH (09:00)
[2019-11-18] MEDS ORDERED: MAGNESIUM OXIDE 400 MG TAB PO SCH (09:00)
[2019-11-18] MEDS ORDERED: MULTIVITAMIN TAB PO SCH (09:00)
[2019-11-18] MEDS ORDERED: ISOSORBIDE MONO EXTENDED REL 60 MG TABCR PO SCH (09:00)
[2019-11-18] MEDS ORDERED: PANTOprazole 40 MG TAB PO SCH (09:00)
== END 2019-11-18 11:03 | disposition home or self-care (01) | DRG 470 ==
LOC: ASU 06:58 → 3W 11:14 → 3E 18:45